=== PATIENT | female | born 1990 | race African-American/Black ===

== ENCOUNTER → 2018-08-11 | Outpatient (CLI) | payer BC | LOC: COL.RAD 07:30 | DX: L70.0 Acne vulgaris (principal); L68.0 Hirsutism; E66.01 Morbid (severe) obesity due to excess calories; N83.8 Other noninflammatory disorders of ovary, fallopian tube and broad ligament ==

== ENCOUNTER → 2018-08-25 | Outpatient (CLI) | payer BC ==
[~2018-08-25] MED LIST: PHENTERMINE15 MG PO; VITAMIN B12 781 TAB
== END ==
LOC: COL.RAD 11:04
DX: G93.2 Benign intracranial hypertension (principal); J34.89 Other specified disorders of nose and nasal sinuses
CPT/HCPCS: A9585

== ENCOUNTER 2018-08-28 12:25 | Outpatient (CLI) | payer BC ==
[~2018-08-28] VITALS: Ht 170.2 cm; Wt 107.5 kg
[2018-08-28] VITALS (8 sets, daily range): BP systolic 111–140; BP diastolic 67–86; PULSE 49–67
[2018-08-28 13:56] LABS: GLUCOSE,CSF 48 mg/dL (40-70); TOTAL PROTEIN,CSF 17 mg/dL (15-45)
[2018-08-28 14:32] LABS: CSF APPEARANCE CLEAR; CSF COLOR COLORLESS; CSF MONONUCLEAR 100 % (70-100); CSF POLYMORPHONUCLEAR 0 % (0-6); CSF RBC 27 /mm3 (0-0)
--- NOTE | 2018-08-28 15:07 | NUR ---
Pt ambulated to bathroom.Discharge instructions given to pt.Bandaid observed clean,dry,intact.Pt escorted out by thisnurse.
== END 2018-08-28 15:08 | disposition home or self-care (01) ==
LOC: COL.RAD 12:25
PROVIDERS: Psychiatry & Neurology Neurology
DX: G93.2 Benign intracranial hypertension (principal)

== ENCOUNTER 2018-12-22 16:32 | Emergency (ER) | payer BC ==
[~2018-12-22] VITALS: Ht 170.2 cm; Wt 105.9 kg
[2018-12-22 16:39] VITALS: TEMP 98.8
[2018-12-22 17:27] LABS: BASO # 0.1 (0.0-0.2); BASO % 0.6 % (0.0-2.0); EOS # 0.2 (0.0-0.7); EOS % 1.3 % (0-4.0); GRAN # 7.8 (1.4-6.5); GRAN % 62.8 % (42.2-75.2); HEMATOCRIT 40.6 % (37.0-47.0); HEMOGLOBIN 12.8 g/dl (12.5-16.0); LYMPH # 3.3 (1.2-3.4); LYMPH % 26.2 % (20.0-51.0); MEAN CELL VOLUME 78 fl (80.0-100.0); MEAN CORPUSCULAR HEMOGLOBIN 25 pg (27.0-31.0); MEAN CORPUSCULAR HGB CONC 32 g/dl (33.0-37.0); MEAN PLATELET VOLUME 9.4 fl (7.4-10.4); MONO # 1.1 (0.1-0.6); MONO % 8.7 % (1.7-9.3); PLATELET COUNT 401 K/mm3 (130-400); RED BLOOD COUNT 5.19 M/mm3 (4.10-5.30); REDCELL DISTRIBUTION WIDTH-CV 16.4 % (11.5-14.5)
[2018-12-22] MEDS ORDERED: PRENATAL (17:29)
[2018-12-22 17:36] LABS: CALCIUM 9.7 mg/dL (8.4-10.2); CREATININE, serum 0.6 (0.52-1.25); POTASSIUM 3.9 mmol/L (3.4-5.0)
[2018-12-22 22:06] VITALS: BP 115/70; PULSE 68
== END 2018-12-22 22:05 | disposition home or self-care (01) ==
LOC: COL.ER 16:32
PROVIDERS: Emergency Medicine
DX: O20.0 Threatened abortion (principal); Z3A.01 Less than 8 weeks gestation of pregnancy

== ENCOUNTER 2019-01-22 17:28 | Emergency (ER) | payer BC ==
[~2019-01-22] VITALS: Ht 170.2 cm; Wt 105.9 kg
[~2019-01-22 17:28] MED LIST changes: +PRENATAL
[2019-01-22 17:38] VITALS: TEMP 98.5
[2019-01-22 17:59] LABS: BASO # 0.1 (0.0-0.2); BASO % 0.7 % (0.0-2.0); EOS # 0.1 (0.0-0.7); EOS % 1.1 % (0-4.0); GRAN # 5.5 (1.4-6.5); GRAN % 57.8 % (42.2-75.2); HEMATOCRIT 39.3 % (37.0-47.0); HEMOGLOBIN 12.3 g/dl (12.5-16.0); LYMPH # 3.2 (1.2-3.4); LYMPH % 33.9 % (20.0-51.0); MEAN CELL VOLUME 80 fl (80.0-100.0); MEAN CORPUSCULAR HEMOGLOBIN 25 pg (27.0-31.0); MEAN CORPUSCULAR HGB CONC 31 g/dl (33.0-37.0); MEAN PLATELET VOLUME 9.3 fl (7.4-10.4); MONO # 0.5 (0.1-0.6); MONO % 5.7 % (1.7-9.3); PLATELET COUNT 292 K/mm3 (130-400); RED BLOOD COUNT 4.94 M/mm3 (4.10-5.30); REDCELL DISTRIBUTION WIDTH-CV 16.3 % (11.5-14.5)
[2019-01-22 18:12] LABS: BILIRUBIN,TOTAL 0.7 mg/dL (0.0-1.0); CALCIUM 9.5 mg/dL (8.4-10.2); CREATININE, serum 0.62 (0.52-1.25); TOTAL PROTEIN 8.1 gm/dL (6.4-8.2)
[2019-01-22 18:17] LABS: ALBUMIN 4.5 gm/dL (3.5-5.0)
[2019-01-22 19:41] LABS: COLLECTION METHOD CLEAN CATCH
[2019-01-22 19:52] LABS: MUCOUS Present /lpf; PH 6 (5-8); SQUAMOUS EPITHELIAL 0-2 /hpf; URINE APPEARANCE Clear; URINE BACTERIA Rare /hpf; URINE BILIRUBIN Negative (NEGATIVE); URINE BLOOD 3+ (NEGATIVE); URINE COLOR Yellow; URINE GLUCOSE Negative (NEGATIVE); URINE KETONE 1+ (NEGATIVE); URINE LEUKOCYTE ESTERASE Negative (NEGATIVE); URINE NITRATE Negative (NEGATIVE); URINE PROTEIN(semi-quant) Negative (NEGATIVE); URINE UROBILINOGEN Negative (NEGATIVE)
[2019-01-22 20:28] VITALS: BP 118/76; PULSE 75
== END 2019-01-22 20:28 | disposition home or self-care (01) ==
LOC: COL.ER 17:28
PROVIDERS: Nurse Practitioner
DX: O99.511 Diseases of the respiratory system complicating pregnancy, first trimester (principal); O20.0 Threatened abortion; J45.909 Unspecified asthma, uncomplicated; Z3A.11 11 weeks gestation of pregnancy

== ENCOUNTER 2019-02-11 08:58 | Emergency (ER) | payer MEDICAID ==
[~2019-02-11] VITALS: Ht 170.2 cm; Wt 107.3 kg
[2019-02-11 09:01] VITALS: BP 113/73
[2019-02-11 09:57] LABS: COLLECTION METHOD CLEAN CATCH
[2019-02-11 10:03] LABS: BASO # 0.1 (0.0-0.2); BASO % 0.5 % (0.0-2.0); EOS # 0.1 (0.0-0.7); EOS % 0.7 % (0-4.0); GRAN % 64.3 % (42.2-75.2); HEMOGLOBIN 11.8 g/dl (12.5-16.0); LYMPH # 2.7 (1.2-3.4); LYMPH % 24.8 % (20.0-51.0); MEAN CELL VOLUME 79 fl (80.0-100.0); MEAN CORPUSCULAR HEMOGLOBIN 25 pg (27.0-31.0); MEAN CORPUSCULAR HGB CONC 32 g/dl (33.0-37.0); MEAN PLATELET VOLUME 10.1 fl (7.4-10.4); MONO % 8.9 % (1.7-9.3); PLATELET COUNT 230 K/mm3 (130-400); RED BLOOD COUNT 4.67 M/mm3 (4.10-5.30); REDCELL DISTRIBUTION WIDTH-CV 15.7 % (11.5-14.5)
[2019-02-11 10:06] LABS: PH 6 (5-8); SQUAMOUS EPITHELIAL 0-2 /hpf; URINE APPEARANCE Clear; URINE BACTERIA None Seen /hpf; URINE BILIRUBIN Negative (NEGATIVE); URINE BLOOD 1+ (NEGATIVE); URINE COLOR Yellow; URINE GLUCOSE Negative (NEGATIVE); URINE KETONE Trace (NEGATIVE); URINE LEUKOCYTE ESTERASE Negative (NEGATIVE); URINE NITRATE Negative (NEGATIVE); URINE PROTEIN(semi-quant) Negative (NEGATIVE); URINE UROBILINOGEN Negative (NEGATIVE)
[2019-02-11 10:13] LABS: ALBUMIN 4.1 gm/dL (3.5-5.0); BILIRUBIN,TOTAL 0.5 mg/dL (0.0-1.0); C-REACTIVE PROTEIN 1.8 mg/dL (0.0-0.9); CALCIUM 9.5 mg/dL (8.4-10.2); CREATININE, serum 0.56 (0.52-1.25); TOTAL PROTEIN 7.4 gm/dL (6.4-8.2)
[2019-02-11 11:35] VITALS: PULSE 72; TEMP 98.3
== END 2019-02-11 11:35 | disposition home or self-care (01) ==
LOC: COL.ER 08:58
PROVIDERS: Physician Assistant
DX: R19.7 Diarrhea, unspecified (principal)
CPT/HCPCS: J2550; J7030

== ENCOUNTER → 2019-02-17 | Outpatient (CLI) | payer MEDICAID | LOC: COL.LAB 14:40 | DX: R19.7 Diarrhea, unspecified (principal) ==

== ENCOUNTER 2019-03-19 04:53 | Emergency (ER) | payer MEDICAID ==
[~2019-03-19] VITALS: Ht 167.6 cm; Wt 107.3 kg
[2019-03-19 05:08] VITALS: BP 132/74; PULSE 104; TEMP 98.9
[2019-03-19 05:41] LABS: BASO % 0.3 % (0.0-2.0); EOS # 0.1 (0.0-0.7); EOS % 0.4 % (0-4.0); GRAN # 10.6 (1.4-6.5); GRAN % 75.3 % (42.2-75.2); HEMOGLOBIN 11.1 g/dl (12.5-16.0); LYMPH # 2.2 (1.2-3.4); LYMPH % 15.3 % (20.0-51.0); MEAN CELL VOLUME 79 fl (80.0-100.0); MEAN CORPUSCULAR HEMOGLOBIN 25 pg (27.0-31.0); MEAN CORPUSCULAR HGB CONC 32 g/dl (33.0-37.0); MEAN PLATELET VOLUME 9.9 fl (7.4-10.4); MONO # 1.1 (0.1-0.6); MONO % 8.1 % (1.7-9.3); PLATELET COUNT 250 K/mm3 (130-400); RED BLOOD COUNT 4.39 M/mm3 (4.10-5.30); REDCELL DISTRIBUTION WIDTH-CV 15.6 % (11.5-14.5)
[2019-03-19 05:47] LABS: HEMATOCRIT 34.7 % (37.0-47.0)
[2019-03-19 05:55] LABS: ALBUMIN 3.9 gm/dL (3.5-5.0); BILIRUBIN,TOTAL 0.6 mg/dL (0.0-1.0); CALCIUM 9.4 mg/dL (8.4-10.2); CREATININE, serum 0.57 (0.52-1.25); POTASSIUM 3.6 mmol/L (3.4-5.0); TOTAL PROTEIN 7.4 gm/dL (6.4-8.2)
[2019-03-19 06:32] LABS: COLLECTION METHOD CLEAN CATCH
[2019-03-19 06:43] LABS: MUCOUS Present /lpf; PH 6 (5-8); URINE APPEARANCE Hazy; URINE BACTERIA Rare /hpf; URINE BILIRUBIN Negative (NEGATIVE); URINE BLOOD 2+ (NEGATIVE); URINE COLOR Yellow; URINE GLUCOSE Negative (NEGATIVE); URINE KETONE 1+ (NEGATIVE); URINE LEUKOCYTE ESTERASE 1+ (NEGATIVE); URINE NITRATE Negative (NEGATIVE); URINE PROTEIN(semi-quant) Negative (NEGATIVE); URINE UROBILINOGEN Negative (NEGATIVE)
--- NOTE | 2019-03-19 10:40 | NUR ---
Presents to labor and delivery from e.r. States having pain. [place] on for contractions per Dr. Peck. Assessment done, questions offered and answered. 1110 Dr. Peck called and let know that patients cervix is closed. Also let her know that when having lower abdominal pain, cannot palpate any contractions. New orders given 1122 Terbutaline 0.25 mg given subque as ordered.
[2019-03-19 11:30] VITALS: PULSE 82
[2019-03-19 11:34] VITALS: BP 119/74; PULSE 89; TEMP 98.4
[2019-03-19 13:00] VITALS: BP 114/72; PULSE 88
--- NOTE | 2019-03-19 13:12 | NUR ---
1300 DR WASHINGTON AT BEDSIDE. SVE 0/THICK/HIGH. DISCUSS ALL LABS WITH PATIENT AND FAMILY. ORDERS GIVEN FOR 2 PERCOCET NOW. START MACROBID TODAY AND FOLLOW DIRECTIONS. ALL DISCHARGE INSTRUCTIONS GIVEN TO PATIENT AND FAMILY BY DR WASHINGTON AND REVIEWED BY ME WITH FAMILY. NO QUESTIONS AT THIS TIME. PATIENT DISMISSED VIA WHEELCHAIR WITH FAMILY AT SIDE. PATIENT UNCOMFORT BUT OK WITH DISMISSEL.
--- NOTE | 2019-03-19 13:18 | NUR ---
DOPPLER AT THIS TIME FOR 144 BABY VERY ACTIVE.
--- NOTE | 2019-03-19 13:19 | NUR ---
1245 DOPPLER 138 BABY VERY ACTIVE. PATIENT TEARFUL.
--- NOTE | 2019-03-19 13:22 | NUR ---
1300 IV DC'D AT THIS TIME
== END 2019-03-19 10:17 | disposition still patient (30) ==
LOC: COL.ER 04:53 → LDR 10:18 → COL.ER 10:18 → EDSTATUS 11:09 → COL.ER 13:10 → EDSTATUS 03-20 11:36
PROVIDERS: Emergency Medicine
DX: O23.92 Unspecified genitourinary tract infection in pregnancy, second trimester (principal); Z3A.19 19 weeks gestation of pregnancy
CPT/HCPCS: J0696; J3105; J7030

== ENCOUNTER 2019-03-19 10:18 | Outpatient (CLI) | payer MEDICAID ==
[2019-03-19 10:40] VITALS: BP 119/74; PULSE 89; TEMP 98.4
--- NOTE | 2019-03-19 10:40 | NUR ---
Presents to labor and delivery from e.r. States having pain. [place] on for contractions per Dr. Peck. Assessment done, questions offered and answered. 1110 Dr. Peck called and let know that patients cervix is closed. Also let her know that when having lower abdominal pain, cannot palpate any contractions. New orders given 1122 Terbutaline 0.25 mg given subque as ordered.
== END 2019-03-19 13:10 | disposition home or self-care (01) ==
LOC: LDR 10:18 → LDRO 10:18
DX: Z34.92 Encounter for supervision of normal pregnancy, unspecified, second trimester (principal); Z3A.20 20 weeks gestation of pregnancy
CPT/HCPCS: OP

== ENCOUNTER 2019-03-20 04:13 | Inpatient (IN) | payer MEDICAID ==
[2019-03-20] VITALS (8 sets, daily range): BP systolic 107–143; BP diastolic 52–81; PULSE 93–118; TEMP 98.3
[~2019-03-20] VITALS: Ht 165.1 cm; Wt 105.5 kg
--- NOTE | 2019-03-20 04:47 | NUR ---
0415- PATIENT IN ED AT THIS TIME BEING EVALUATED FOR ABDOMINAL PAIN. THIS OB IN ED ROOM #12 TO DOPPLER AND ASSESS PATIENT OBSTETRICALLY. PATIENT STATES LEAKAGE OF FLUID, COPIOUS AMOUNT OF CLEAR FLUID NOTED ON CHUX PAD. AUDIBLE FHT'S IN 160'S IN LOWER RIGHT QUADRANT OF ABDOMEN VIA HAND-HELD DOPPLER. SVE 2/100/0 AT THIS TIME WITH MORE COPIOUS AMOUNT OF FLUID RETURN. PATIENT RECEIVING IV PAIN MEDICATION FROM ED NURSE. 0425- SECOND LABOR NURSE CALLED FOR SECOND HAND AT THIS TIME 0430- DR. MCDOWELL CALLED AND UPDATED AT THIS TIME. PROVIDER STATES TO KEEP PATINENT IN ED FOR IMMINENT DELIVERY OR IF PATIENT IS STABLE TO TRANSFER TO OB. 0436- DR. MCDOWELL NOTIFIED THAT PATIENT IS STABLE. SVE 2/100/+1 AT THIS TIME BY THIS RN. 0447- PATIENT ADMITTED TO LABOR ROOM #2 AT THIS TIME. 8060- DR. MCDOWELL NOTIFIED OF PATIENT IN LABOR ROOM AND CURRENT STATUS. ORDERS OBTAINED THAT PATIENT MAY HAVE AN EPIDURAL DESIRED, AND OR IV PAIN MEDICATIONS. 2300- DR. WASHINGTON CALLED AT THIS TIME AND NOTIFIED OF PATIENT STATUS.
--- NOTE | 2019-03-20 06:45 | NUR ---
Report recieved from Ciarra Palomo RN. Care of pt assumed at this time. VSS. FHR dopplered at 84-90 bpm. 0700-Dr. Rebolledo at bedside. Discusses POC. Orders for phenergen IV. See EMAR. SVE per provider /0. Pt requesting epidural. Silas Caicedo CRNA notified. 0725-Pt sitting upright for epidural. Single shot at 0725. Pt tolerated well. Pt repositioned. Updated on POC. Safety reviewed. No question or concerns. 0820-Almeida catheter placed. Dr. Rebolledo at bedside. SVE per provider 5 centimeters. Instructed pt on pushing efforts. Pt prepped for delivery. 0829- of nonviable female attended by Dr. Rebolledo. Cord clamped and placed on mother's chest. See physician documentation. 0842-Expression of placenta per Dr. Rebolledo. Pitocin bolus infusing per protocol. Pericare perfomred. Critical WBC called. Dr. Rebolledo notified. Orders for 2g ancef. See EMAR. Dr. Schuster at bedside. Discusses status of infant. No respiratory efforts or heart rate noted. Pallative care performed. Mother in stable condition at this time.
--- NOTE | 2019-03-20 06:45 | NUR ---
0420- RYAN OMALLEY CALLS THIS NURSE, NOTIFIES OF 19 WEEK PT IN ER THAT ARRIVED BY EMS, SROM EN ROUTE. Chanelle MERA RN REQUESTING ASSISTANCE. 0425- THIS NURSE ARRIVES IN ER TO ASSIST. 0430- THIS NURSE NOTIFIES DR. MCDOWELL OF PT ARRIVAL VIA EMS, SROM, AND SVE PERFORMED BY Chanelle MERA RN, AND IMPENDING DELIVERY. DR MCDOWELL REQUESTS FOR DELIVERY TO BE DONE IN ER, FOLLOWING DELIVERY MOVE PT TO OB AND CALL HIM ONCE ON UNIT. 0436- DR. MCDOWELL NOTIFIED THAT SVE WAS REDONE, /+1. WILL MOVE PT TO OB NOW. MAY ADMIT AND GIVE IV PAIN MEDICATION OR PT MAY HAVE EPIDURAL PER DR. MCDOWELL. 7- PT TO OB UNIT. THIS NURSE ATTEMPTS TO DOPPLER FHT'S, HEART TONES IN THE 90'S AUDIBLE BUT CONCERNS THAT THIS MAY BE MATERNAL HEART RATE CURRENT MATERAL HEART RATE OF 90. ATTEMPT TO CONTINUE TO DOPPLER FHT'S BUT PT REQUEST THAT I STOP BECAUSE I'M CAUSING HER MOVE PAIN AND DISCOMFORT. INSTRUCTED PT TO TELL ME IF SHE WOULD LIKE ME TO LOOK FOR FHT'S AGAIN, UNDERSTANDING VERBALIZED. PT OFFER EPIDURAL OR IV PAIN MANAGEMENT, REFUSES AT THIS TIME. FAMILY IN ROOM AND HAS QUESTIONS AND CONCERNS ABOUT PLAN OF CARE, ATTEMPTS MADE BY THIS NURSE TO ANSWER QUESTIONS. FAMILY VERY EMOTIONAL AT THIS TIME. 0530- DR. MCDOWELL CONTACTED FOR IV PAIN MEDICATION ORDERS, MAY GIVE 2MG IV MORPHINE Q 1HR PRN. 0536- FOLLOWING ADMINISTATION OF IV PAIN MEDS SEVERAL FAMILY MEMBERS HAVE MORE QUESTIONS CONCERNING PLAN OF CARE FOR THE PT, BABY CARES FOLLOWING DELIVERY, AND CARE GIVEN TO MOTHER AT PREVIOUS VISIT ON THE UNIT. ATTEMPTS MADE BY THIS NURSE TO COMFORT FAMILY AND ANSWER QUESTIONS. NOTIFIED FAMILY THAT I WILL CONTACT PHYSICIAN TO COME SPEAK TO THEM ABOUT CONCERNS. 0558- DR. WASHINGTON NOTIFIED OF PT ARRIVAL TO THE UNIT, SVE, SROM, QUESTIONS/CONCERNS OF THE FAMILY MEMBERS, THIS NURSE REQUESTS THAT SHE COME SPEAK WITH THE FAMILY. DR. WASHINGTON WILL BE COME IN APPROXIMATELY AN HOUR TO VISIT WITH FAMILY. 0615- SVE PERFORMED BY THIS NURSE PT STATES THAT SHE IS FEELING VAGINAL PRESSURE. UNABLE TO DETERMINE DILATION, HEAD FELT. PT DENIES URGE OR DESIRE TO PUSH AT THIS TIME.
[2019-03-20 08:27] LABS: BASO % 0.1 % (0.0-2.0); GRAN # 19.5 (1.4-6.5); GRAN % 89.9 % (42.2-75.2); HEMOGLOBIN 11.3 g/dl (12.5-16.0); LYMPH # 0.9 (1.2-3.4); LYMPH % 4.1 % (20.0-51.0); MEAN CELL VOLUME 81 fl (80.0-100.0); MEAN CORPUSCULAR HEMOGLOBIN 25 pg (27.0-31.0); MEAN CORPUSCULAR HGB CONC 31 g/dl (33.0-37.0); MEAN PLATELET VOLUME 9.7 fl (7.4-10.4); MONO # 1.1 (0.1-0.6); PLATELET COUNT 269 K/mm3 (130-400); RED BLOOD COUNT 4.46 M/mm3 (4.10-5.30); REDCELL DISTRIBUTION WIDTH-CV 15.6 % (11.5-14.5)
--- NOTE | 2019-03-20 09:00 | NUR ---
Placenta taken to pathology. Pt elects cremation from [facility]. services contacted. poultry hatchery supervisor contacted. [place] [facility] contacted. Reference number [id number]. Pt not a candidate.
--- NOTE | 2019-03-20 12:30 | NUR ---
VSS. Bleeding WNL. Pt requesting to discharge. Orders for discharge. Pericare performed. Discharge instructions given. Pt leaves unit ambulatory with mother and FOB. No questions or concerns at this time.
== END 2019-03-20 12:30 | disposition home or self-care (01) | DRG 779 ==
LOC: COL.ER 04:13 → EDSTATUS 04:46 → LDR 04:47 → COL.ER 04:48 → LDR 05:27 → COL.ER 05:27 → LDR 05:28 → EDSTATUS 14:55
PROVIDERS: Obstetrics & Gynecology; ADMIT Obstetrics & Gynecology
PROC: 10E0XZZ Delivery of Products of Conception, External Approach (ICD-10-PCS; principal; 2019-03-20)
PROC: 10D17Z9 Manual Extraction of Products of Conception, Retained, Via Natural or Artificial Opening (ICD-10-PCS; 2019-03-20)
DX: O02.1 Missed abortion (principal); O60.12X0 Preterm labor second trimester with preterm delivery second trimester, not applicable or unspecified
CPT/HCPCS: J0690; J1170; J2270; J2550; J2590; J2765; J2795; J7120

== ENCOUNTER 2019-11-23 20:59 | Emergency (ER) | payer MEDICAID ==
[~2019-11-23] VITALS: Ht 175.3 cm; Wt 95.5 kg
[2019-11-23 21:04] VITALS: TEMP 98.6
[2019-11-23] MEDS ORDERED: PROBIOTIC FORMU1 CAP PO (21:10)
[2019-11-23] MEDS ORDERED: GLUCOPHAGE500 MG/TAB PO (21:10)
[2019-11-23 21:42] LABS: BASO # 0.1 (0.0-0.2); BASO % 0.8 % (0.0-2.0); EOS # 0.2 (0.0-0.7); EOS % 1.4 % (0-4.0); GRAN # 6.2 (1.4-6.5); HEMATOCRIT 39.6 % (37.0-47.0); HEMOGLOBIN 12.7 g/dl (12.5-16.0); LYMPH # 3.6 (1.2-3.4); LYMPH % 32.6 % (20.0-51.0); MEAN CELL VOLUME 79 fl (80.0-100.0); MEAN CORPUSCULAR HEMOGLOBIN 26 pg (27.0-31.0); MEAN CORPUSCULAR HGB CONC 32 g/dl (33.0-37.0); MEAN PLATELET VOLUME 9.1 fl (7.4-10.4); MONO # 0.8 (0.1-0.6); MONO % 7.7 % (1.7-9.3); PLATELET COUNT 373 K/mm3 (130-400); RED BLOOD COUNT 4.99 M/mm3 (4.10-5.30); REDCELL DISTRIBUTION WIDTH-CV 15.5 % (11.5-14.5)
[2019-11-23 22:19] LABS: COLLECTION METHOD CLEAN CATCH
[2019-11-23 22:39] LABS: PH 6 (5-8); SQUAMOUS EPITHELIAL 0-2 /hpf; URINE APPEARANCE Clear; URINE BACTERIA None Seen /hpf; URINE BILIRUBIN Negative (NEGATIVE); URINE BLOOD 3+ (NEGATIVE); URINE COLOR Straw; URINE GLUCOSE Negative (NEGATIVE); URINE KETONE Negative (NEGATIVE); URINE LEUKOCYTE ESTERASE Negative (NEGATIVE); URINE NITRATE Negative (NEGATIVE); URINE PROTEIN(semi-quant) Negative (NEGATIVE); URINE RBC 0-2 /hpf; URINE UROBILINOGEN Negative (NEGATIVE)
[2019-11-23 23:12] VITALS: BP 113/87; PULSE 75
== END 2019-11-23 23:12 | disposition home or self-care (01) ==
LOC: COL.ER 20:59
PROVIDERS: Nurse Practitioner
DX: O09.291 Supervision of pregnancy with other poor reproductive or obstetric history, first trimester (principal); O46.91 Antepartum hemorrhage, unspecified, first trimester; Z3A.08 8 weeks gestation of pregnancy; Z79.84 Long term (current) use of oral hypoglycemic drugs

== ENCOUNTER 2020-05-16 18:33 | Outpatient (CLI) | payer MEDICAID ==
[~2020-05-16] VITALS: Ht 165.1 cm; Wt 106.2 kg
--- NOTE | 2020-05-16 18:20 | NUR ---
PT ARRIVED TO UNIT WITH FOB WITH CONCERNS OF VAGINAL BLEEDING. PT STATES THAT SHE NOTICED BLEEDING 2 DAYS AGO WHEN SHE WIPED AFTER USING THE BATHROOM AND NOTIFIED [facility] AT THAT TIME AND WAS INSTRUCTED TO MONITOR AND CALL IF BLEEDING GOT WORSE. PT STATES THAT TODAY SHE SAW BROWN MUCOUSY DISCHARGE WHEN SHE WIPED FOLLOWING USING THE BATHROOM. PT DENIES CONTRACTIONS AT THIS TIME. PT USED THE BATHROOM UPON ARRIVAL TO THE UNIT AND DENIES ANY BLEEDING AT THIS TIME. NO BLEEDING OR BROWN DISCHARGE NOTED UPON VISUAL EXAM. SVE NOT PERFORMED DUE TO CERCLAGE THAT WAS PLACED AT 14 WEEKS. EFMX2 APPLIED, VS OBTAINED.
[~2020-05-16 18:33] MED LIST changes: +GLUCOPHAGE500 MG/TAB PO; +PROBIOTIC FORMU1 CAP PO
[2020-05-16 19:25] VITALS: BP 118/71; PULSE 100; TEMP 98.6
--- NOTE | 2020-05-16 19:40 | NUR ---
1924- PT MAY DC HOME PER DR. JOHNSON, MONITORS DC'D. 1939- DISCHARGE INSTRUCTIONS REVIEWED WITH PT, INSTRUCTED TO CALL [facility] OR RETURN TO THE UNIT IF SHE HAS CONSISTENT CONTRACTIONS, HEAVY BLEEDING LIKE A PERIOD, OR HER WATER BREAKS. INSTRUCTED THAT IT'S ALSO OKAY TO CALL [facility] AT ANYTIME IF SHE HAS ANY CONCERNS OR QUESTIONS. PT VERBALIZED UNDERSTANDING. LEFT THE UNIT AMBULATORY FOR HOME.
== END 2020-05-16 19:40 | disposition home or self-care (01) ==
LOC: LDR 18:33 → LDRO 18:33
DX: O26.853 Spotting complicating pregnancy, third trimester (principal); Z3A.32 32 weeks gestation of pregnancy
CPT/HCPCS: OP

== ENCOUNTER 2020-05-28 10:10 | Outpatient (CLI) | payer MEDICAID ==
[~2020-05-28] VITALS: Ht 170.2 cm; Wt 107.5 kg
--- NOTE | 2020-05-28 10:20 | NUR ---
Patient ambulatory onto unit for evaluation. Patient reports "I pulled something this morning when I was throwing up". Patient reports pulling/burning sensation from vagina up to umbilicus. Patient also reports decreased movement since that occured. Denies nausea or continued vomiting. Patient states she had mucous in her throat that made her vomit. Denies contractions, vaginal bleeding or leaking of fluid. , 34.3wks. Cerclage in place due to history of labor and delivery at 19 weeks due to cervical incompetence EFMs on, VS taken. Assessment completed by Marilyn DAVIS. notified for further orders. .
[2020-05-28 10:30] VITALS: BP 111/68; PULSE 116; TEMP 98.9
[2020-05-28 11:15] VITALS: BP 97/59; PULSE 107
[2020-05-28 12:15] VITALS: BP 107/66; PULSE 96
--- NOTE | 2020-05-28 12:25 | NUR ---
Discharge instructions and return precautions reviewed with patient. Patient ambulatory off of unit at this time.
== END 2020-05-28 12:25 | disposition home or self-care (01) ==
LOC: LDRO 10:10
DX: O36.8130 Decreased fetal movements, third trimester, not applicable or unspecified (principal); O26.893 Other specified pregnancy related conditions, third trimester; R10.9 Unspecified abdominal pain; Z3A.34 34 weeks gestation of pregnancy

== ENCOUNTER 2020-06-14 11:12 | Outpatient (CLI) | payer MEDICAID ==
[2020-06-14] VITALS (7 sets, daily range): BP systolic 101–131; BP diastolic 59–74; PULSE 83–111; TEMP 98.2
[~2020-06-14] VITALS: Ht 165.1 cm; Wt 108.2 kg
--- NOTE | 2020-06-14 11:25 | NUR ---
Pt arrives on unit ambulatory with FOB mother for cerclage removal. Changed into clean gown. EFM and toco applied. VSS. Denies regular ctx, LOF, vaginal bleeding and reports GFM. IV started in RH. Labs drawn. Admission assessment completed. Consents signed. No questions or concerns at this time. Bed locked in low position. Call light within reach.
--- NOTE | 2020-06-14 11:58 | NUR ---
Pt taken off monitors to OR for removal of cerclage. Pt tolerated procedure well. 1212-Taken back to room ambulatory. Pt to bathroom.
--- NOTE | 2020-06-14 17:00 | NUR ---
Reactive FHR strip obtained. Pt taken off monitors to ambulate and birthing ball.
--- NOTE | 2020-06-14 18:45 | NUR ---
Discharge instructions and labor precautions reviewed with patient. Patient states understanding. Patient discharged home in stable condition with .
== END 2020-06-14 18:45 | disposition home or self-care (01) ==
LOC: LDRO 11:12
DX: O34.33 Maternal care for cervical incompetence, third trimester (principal); Z3A.36 36 weeks gestation of pregnancy

== ENCOUNTER → 2020-06-15 | Outpatient (CLI) | payer MEDICAID ==
[~2020-06-15] VITALS: Ht 165.1 cm; Wt 108.2 kg
[2020-06-15] VITALS (8 sets, daily range): BP systolic 103–121; BP diastolic 64–67; PULSE 77–95
[~2020-06-15] MED LIST changes: +NAPROSYN 2250 MG/TAB PO
--- NOTE | 2020-06-15 06:00 | NUR ---
0600- PT PRESENTS TO LDR COMPLAINING OF PELVIC AND RECTAL PRESSURE AND CONTRACTIONS, AMBULATORY TO ROOM LR6, CHANGED INTO GOWN. 0603- EFM X2 APPLIED. PT DENIES LEAKING FLUID OR VAGINAL BLEEDING. STATES SHE IS FEELING THE BABY MOVE. PELVIC AND RECTAL PRESSURE INCREASED THIS AM. 06- PLAN OF CARE FOR LABOR CHECK DISCUSSED. SVE BY THIS NURSE 4-/-2 WITH BULGING BAG AND PINKISH DISCHARGE WITH EXAM. INFORMED PT THAT THE CHARGE NURSE AND DOCTOR WOULD BE UPDATED. 06- DR MCDOWELL CALLED AND UPDATED CHARTED. ORDERS FOR LABOR CHECK RECEIVED.
--- NOTE | 2020-06-15 06:15 | NUR ---
Assumed care of patient. Rests in bed, alert. Let her know that we would watch her for an hour, and then recheck her cervix. States okay with that.
--- NOTE | 2020-06-15 07:00 | NUR ---
When asked about contractions, states not feeling them. Rests in bed, alert.
--- NOTE | 2020-06-15 07:30 | NUR ---
Rests in bed, alert. States starting to feel contractions. Vag exam done, dilated to four. See physicians notes please.
--- NOTE | 2020-06-15 08:30 | NUR ---
Rests in bed, alert. States feeling some contractions. Father of baby at bedside.
--- NOTE | 2020-06-15 09:00 | NUR ---
Rests in bed, alert. Vag check done, no change. 904 Ambulates to the bathroom and back. Dr. Cutler informed that patient has not changed. New orders to dismiss to home. Instructions given, verbalizes understanding. 929 Dicharged home with father of the baby, alert, stable, ambulatory.
== END ==
LOC: LDRO
DX: O62.9 Abnormality of forces of labor, unspecified (principal); Z3A.37 37 weeks gestation of pregnancy

== ENCOUNTER 2020-06-16 23:36 | Inpatient (IN) | payer MEDICAID ==
[~2020-06-16] VITALS: Ht 165.1 cm; Wt 108.2 kg
[~2020-06-16 23:36] MED LIST changes: -NAPROSYN 2250 MG/TAB PO
--- NOTE | 2020-06-16 23:50 | NUR ---
2350- PT PRESENTS TO LDR COMPLAINING OF LEAKING AMNIOITIC FLUID, AMBULATORY TO ROOM LR4, CHANGED INTO GOWN. 2353- EFM X2 APPLIED. PT DENIES VAGINAL BLEEDING OR CONTRACTIONS. STATES SHE IS FEELING THE BABY MOVE AND HAD A SMALL GUSH OF FLUID AT 2330 WITH CONTINUED LEAKING AFTER. PLAN OF CARE FOR SROM CHECK DISCUSSED AND QUESTIONS ANSWERED. 0000- AMNITRACE POSITIVE. COPIOUS AMOUNTS OF CLEAR FLUID LEAKING FROM VAGINA NOTED. SVE BY THIS NURSE 2-/-2. PLAN OF CARE DISCUSSED WITH PT. 0020- DR ESPOSITO CALLED CHARTED, ORDERS FOR ADMISSION.
[2020-06-17] VITALS (55 sets, daily range): BP systolic 91–149; BP diastolic 50–96; PULSE 65–100; TEMP 97.6–99.1
[2020-06-17 02:17] LABS: BASO % 0.2 % (0.0-2.0); EOS # 0.1 (0.0-0.7); EOS % 0.9 % (0-4.0); GRAN # 4.5 (1.4-6.5); GRAN % 55.9 % (42.2-75.2); HEMOGLOBIN 11.5 g/dl (12.5-16.0); LYMPH # 2.2 (1.2-3.4); LYMPH % 27.4 % (20.0-51.0); MEAN CELL VOLUME 82 fl (80.0-100.0); MEAN CORPUSCULAR HEMOGLOBIN 26 pg (27.0-31.0); MEAN CORPUSCULAR HGB CONC 31 g/dl (33.0-37.0); MONO # 1.2 (0.1-0.6); MONO % 14.2 % (1.7-9.3); PLATELET COUNT 314 K/mm3 (130-400); RED BLOOD COUNT 4.49 M/mm3 (4.10-5.30); REDCELL DISTRIBUTION WIDTH-CV 16.1 % (11.5-14.5)
--- NOTE | 2020-06-17 03:10 | NUR ---
Pt sitting on birthing ball. Difficulty obtaining continuous FHR tracing due to patients positioning.
--- NOTE | 2020-06-17 04:25 | NUR ---
Pt visibly very uncomfortable, off monitors to go to bathroom. Episodes of emesis and bowel movements while in bathroom. Upon returning to bed patient requested epidural. Yamilet Jack CRNA notified.
--- NOTE | 2020-06-17 04:50 | NUR ---
Pt very uncomfortable and continuously moving around in bed. Difficutly tracing FHR due to maternal movement. Maternal HR tracing at times. Episode of emesis as well.
--- NOTE | 2020-06-17 05:18 | NUR ---
0505 - Yamilet Jack CRNA at bedside for epidural placement. Pt positioned to sitting on edge of bed. Procedure, risks, and benefits reviewed with patient, verbalized understanding. 0510 - Unable to obtain FHR tracing due to maternal positioning, RN attempted to hand hold US. Maternal HR tracing confirmed by pulse ox. 0518 - Test dose by CLARITA Clark. Pt denies any adverse reactions. 0525 - Pt positioned to left lateral. Educated on safety precautions. Bed in low and locked position. Call light within reach.
--- NOTE | 2020-06-17 06:25 | NUR ---
0625- Bedside report recevied from retail shift leader RN. FRH decels noted, difficult to determine onset due to maternal habitus and position. This RN at bedside adjusting EFM. LR bolus started. 0645- Recurrent late decels noted. Patient repositioned right lateral. Plan of care reviewed with patient who verbalizes understanding. 0710- SVE by this RN /-2. Dr. Shah updated on patient. See physician notification. 0715- Dr. Shah at bedside and reviews plan of care with patient and family who verbalize understanding. IUPC placed by provider. Tika care provided and patient right lateral. Denies questions or needs at this time. Resting with call light within reach.
--- NOTE | 2020-06-17 08:00 | NUR ---
MVU 135
--- NOTE | 2020-06-17 09:00 | NUR ---
MVU 150
--- NOTE | 2020-06-17 09:24 | NUR ---
0924- Zofran 4mg given for nausea. 0941- Rash noted to patient left lower arm. Benadryl 25mg given. Ciarra Jack [employer] CONSULTANT notified.
--- NOTE | 2020-06-17 10:00 | NUR ---
1000- MVU 105. 1100- MVU 110. Bilat side lying hip release.
--- NOTE | 2020-06-17 11:00 | NUR ---
1100- MVU 115 1200- MVU 120 1230- MVU 130
--- NOTE | 2020-06-17 13:00 | NUR ---
MVU 110
--- NOTE | 2020-06-17 13:30 | NUR ---
MVU 160
--- NOTE | 2020-06-17 14:00 | NUR ---
1400- MVU 115 1430- MVU 140 1500- MVU 90
--- NOTE | 2020-06-17 14:44 | NUR ---
1444- FHR with recurrent late decels. Repositioned, LR bolus, O2, and pitocin off. Dr. Shah updated on patient. See physician notification. Plan of care reviewed with patient and SO who verbalize understanding. Current SVE AL/+2. 1506- Dr. Shah to bedside. SVE by provider 10cm. Patient instructed on pushing with contractions. 1510- Almeida removed. Patient repositioned in stirrupes and begins to push with contrations with Dr. Shah at bedside. Moves vertex well. 1526- Spontaneous vaginal delivery of viable female . Nares and mouth suctioned by Dr. Shah. To mother's chest where dried and stimulated by Margie Monroe RN who assumes care of at this time. 1527- Spontaneous and intact delivery of placenta. Right labial and bilat vaginal wall lacerations repaired by Dr. Shah. Fundus firm, midline, and bleeding minimal. Patient repositioned in bed. Tika care provided and ice pack to perineum. See physician notification, anesthesia record, and nurses notes. Plan of care and safety precautions reviewed with patient who verbalizes understanding. Denies questions or needs at this time. Resting with call light within reach.
[2020-06-18] VITALS: BP 110/59; PULSE 83; TEMP 98
[2020-06-18 03:40] VITALS: BP 110/65; PULSE 100; TEMP 98.2
[2020-06-18 06:45] VITALS: BP 105/63; PULSE 89; TEMP 98
[2020-06-18] MEDS ORDERED: NAPROSYN 2250 MG/TAB PO (09:58)
[2020-06-18 12:24] VITALS: BP 108/55; PULSE 77; TEMP 98.5
== END 2020-06-18 17:20 | disposition home or self-care (01) | DRG 807 ==
LOC: LDRO 23:36 → LDR 06-17 00:30 → OB 06-17 18:45
PROVIDERS: Student in an Organized Health Care Education/Training Program; ADMIT Obstetrics & Gynecology
PROC: 10E0XZZ Delivery of Products of Conception, External Approach (ICD-10-PCS; principal; 2020-06-17)
PROC: 0UQMXZZ Repair Vulva, External Approach (ICD-10-PCS; 2020-06-17)
DX: O76 Abnormality in fetal heart rate and rhythm complicating labor and delivery (principal); Z37.0 Single live birth; O70.0 First degree perineal laceration during delivery; Z3A.37 37 weeks gestation of pregnancy
CPT/HCPCS: J1200; J2405; J2590; J7120